=== PATIENT | male | born 1965 | race African-American/Black ===

== ENCOUNTER 2018-04-06 13:11 | Inpatient (IN) | payer OTHER ==
[2018-04-06 16:02] VITALS: BMI 37.3
[2018-04-06] MEDS ORDERED: chlordiazePOXIDE HCL 25 MG CAPSULE PO PRN (18:52)
[2018-04-06] MEDS ORDERED: MENTHOL/PHENOL 1 EACH UD MM PRN (18:52)
[2018-04-06] MEDS ORDERED: guaiFENesin/D-METHORPHAN HB 10 ML UNIT-DOSE CUPS PO PRN (18:52)
[2018-04-06] MEDS ORDERED: MAGNESIUM HYDROX 2400MG/30ML ORAL SUSPENSION 30 ML CUP PO PRN (18:52)
[2018-04-06] MEDS ORDERED: MAGNESIUM CITRATE 300 ML BOTTLE PO PRN (18:52)
[2018-04-06] MEDS ORDERED: hydrOXYzine PAMOATE 50 MG CAPSULE (FP) PO PRN (18:52)
[2018-04-06] MEDS ORDERED: LOPERAMIDE HCL 2 MG CAPSULE PO PRN (18:52)
[2018-04-06] MEDS ORDERED: chlordiazePOXIDE HCL 25 MG CAPSULE PO ONE (18:52)
[2018-04-06] MEDS ORDERED: P-EPHED 60MG/TRIPROLIDI 2.5MG TABLET PO PRN (18:52)
--- NOTE | 2018-04-06 18:52 | HP ---
CIWA Score - CIWA Score Nausea/Vomitin-No Nausea/No Vomiting Muscle Tremors: 4-Moderate,w/Arms Extend Anxiety: 3 Agitation: 3 Paroxysmal Sweats: 3 Orientation: 0-Oriented Tacttile Disturbances: 0-None Auditory Disturbances: 0-None Visual Disturbances: 0-None Headache: 0-None Present CIWA-Ar Total Score: 13 Admission ROS [facility] - HPI Chief Complaint: I am here to stop drinking. Allergies/Adverse Reactions: Allergies Allergy/AdvReac Type Severity Reaction Status Date / Time No Known Allergies Allergy Verified 04/06/18 17:03 History of Present Illness: pt is a 52yr old male with a history of alcohol and crack/cocaine dependence seeking detox for treatment. Exam Limitations: No Limitations - Ebola screening Have you traveled outside of the country in the last 21 days: No Have you had contact with anyone from an Ebola affected area: No Have you been sick,other than usual withdrawal symptoms: No Do you have a fever: No - Review of Systems Constitutional: No Symptoms Reported EENT: reports: Tearing, Nose Congestion Respiratory: reports: No Symptoms reported Cardiac: reports: No Symptoms Reported GI: reports: No Symptoms Reported : reports: No Symptoms Reported Musculoskeletal: reports: No Symptoms Reported Integumentary: reports: No Symptoms Reported Neuro: reports: Tingling, Tremors Endocrine: reports: Flushing Hematology: reports: No Symptoms Reported Psychiatric: reports: Judgement Intact, Mood/Affect Appropiate, Orientated x3, Agitated, Anxious Other Systems: Reviewed and Negative Patient History - Patient Medical History Hx Anemia: No Hx Asthma: No Hx Chronic Obstructive Pulmonary Disease (COPD): No Hx Cancer: No Hx Cardiac Disorders: No Hx Congestive Heart Failure: No Hx Hypertension: No Hx Hypercholesterolemia: No Hx Pacemaker: No HX Cerebrovascular Accident: No Hx Seizures: No Hx Diabetes: No Hx Gastrointestinal Disorders: No Hx Liver Disease: No Hx Genitourinary Disorders: No Hx Sexually Transmitted Disorders: No Hx Renal Disease (ESRD): No Hx Thyroid Disease: No Hx Human Immunodeficiency Virus (HIV): No (denies) Hx Hepatitis C: No Hx Depression: Yes Hx Suicide Attempt: No Hx Bipolar Disorder: No Hx Schizophrenia: Yes - Patient Surgical History Past Surgical History: No Hx Neurologic Surgery: No Hx Cataract Extraction: No Hx Cardiac Surgery: No Hx Lung Surgery: No Hx Breast Surgery: No Hx Breast Biopsy: No Hx Abdominal Surgery: No Hx Appendectomy: No Hx Cholecystectomy: No Hx Genitourinary Surgery: No Hx Section: No Hx Orthopedic Surgery: No Anesthesia Reaction: No - PPD History Previous Implant?: Yes Documented Results: Negative w/o proof Implanted On Prior [facility] Admission?: No PPD to be Administered?: Yes - Reproductive History Patient is a Female of Child Bearing Age (11 -55 yrs old): No - Smoking Cessation Smoking history: Current every day smoker Have you smoked in the past 12 months: Yes Aproximately how many cigarettes per day: 30 Hx Chewing Tobacco Use: No Initiated information on smoking cessation: Yes 'Breaking Loose' booklet given: 04/06/18 - Substance & Tx. History Hx Alcohol Use: Yes Hx Substance Use: Yes Substance Use Type: Alcohol, Cocaine Hx Substance Use Treatment: Yes (last detox 20yrs ago at [place], [place]) - Substances Abused Crack Route: Smoking Frequency: 3-6 times per week Amount used: $400 Age of first use: 21 Date of Last Use: 04/05/18 Alcohol-beer Route: Oral Frequency: Daily Amount used: 2-6 pks beers/ 2 pint cognac Age of first use: 15 Date of Last Use: 04/06/18 Family Disease History - Family Disease History Family Disease History: Diabetes: Mother (), Heart Disease: Father ( ), Mother Admission Physical Exam [facility] - Vital Signs Vital Signs: Vital Signs - 24 hr 04/06/18 15:58 Temperature 98.5 F Pulse Rate 111 H Respiratory 20 Rate Blood Pressure 138/80 - Physical General Appearance: Yes: Appropriately Dressed, Moderate Distress, Obese, Tremorous, Irritable, Sweating, Anxious HEENTM: Yes: Normal Voice, Nasal Congestion, Rhinorrhea Respiratory: Yes: Lungs Clear, Normal Breath Sounds, No Respiratory Distress Neck: Yes: No masses,lesions,Nodules Breast: Yes: Within Normal Limits Cardiology: Yes: Regular Rhythm, Regular Rate, S1, S2 Abdominal: Yes: Normal Bowel Sounds, Non Tender, Flat Genitourinary: Yes: Within Normal Limits Back: Yes: Normal Inspection Musculoskeletal: Yes: full range of Motion, Gait Steady Extremities: Yes: Normal Capillary Refill, Normal Inspection, Tremors Neurological: Yes: Fully Oriented, Alert, Normal Response Integumentary: Yes: Normal Color Lymphatic: Yes: Within Normal Limits - Diagnostic (1) Alcohol dependence with uncomplicated withdrawal Current Visit: Yes Status: Chronic (2) Crack cocaine use Current Visit: Yes Status: Chronic (3) Nicotine dependence Current Visit: Yes Status: Chronic Qualifiers: Nicotine product type: cigarettes Substance use status: uncomplicated Qualified Code(s): F17.210 - Nicotine dependence, cigarettes, uncomplicated Cleared for Admission [facility] - Detox or Rehab [facility] Level of Care: Medically Managed Detox Regimen/Protocol: Librium S Breath Alcohol Content Breath Alcohol Content: 0.002 Urine Drug Screen - Results Drug Screen Negative: No Urine Drug Screen Results: JOSE-Cocaine
[2018-04-06] MEDS ORDERED: ACETAMINOPHEN 325 MG TABLET (FP) PO PRN (19:00)
[2018-04-06] MEDS: THIAMINE HCL 100 MG TABLET (FP) PO SCH (22:16)
[2018-04-06] MEDS: chlordiazePOXIDE HCL 25 MG CAPSULE PO SCH (22:16)
[2018-04-06 23:07] LABS: URINE APPEARANCE CLEAR; URINE BILIRUBIN NEGATIVE (<2.0 mg/dL); URINE COLOR YELLOW; URINE GLUCOSE (UA) NEGATIVE (NEGATIVE); URINE KETONE TRACE (NEGATIVE); URINE LEUK ESTERASE NEGATIVE (NEGATIVE); URINE NITRITE NEGATIVE (NEGATIVE); URINE PROTEIN NEGATIVE (NEGATIVE); URINE UROBILINOGEN NEGATIVE mg/dL (0.2-1.0)
[2018-04-06 23:17] LABS: EPI CELLS RARE /HPF (FEW); URINE MUCUS RARE
[2018-04-07] MEDS: chlordiazePOXIDE HCL 25 MG CAPSULE PO SCH ×4 (05:53→22:12)
[2018-04-07] MEDS: PRENATAL VITAMINS W/ FOLIC ACID TABLET (FP) PO SCH (10:06)
[2018-04-07] MEDS: NICOTINE 21 MG/24 HOURS TOPICAL PATCH TD SCH (10:06)
[2018-04-07] MEDS: NICOTINE POLACRILEX 4 MG GUM BUC PRN (10:09)
[2018-04-07 10:14] LABS: HEMATOCRIT 44.3 % (35.4-49); HEMOGLOBIN 14.5 GM/dL (11.7-16.9); MCH 28.7 pg (25.7-33.7); MCHC 32.8 g/dl (32.0-35.9); MEAN CELL VOLUME 87.5 fl (80-96); MEAN PLT VOLUME 8.9 fl (7.5-11.1); PLATELET COUNT 271 K/MM3 (134-434); RBC 5.07 M/mm3 (4.00-5.60); RDW 14.8 % (11.9-15.9); WHITE BLOOD COUNT 18.9 K/mm3 (4.0-10.0)
[2018-04-07 10:18] LABS: ALBUMIN 3.7 g/dl (3.4-5.0); ANION GAP 8 (8-16); BILIRUBIN,TOTAL 0.6 mg/dL (0.2-1.0); BLOOD UREA NITROGEN 8 mg/dL (7-18); CALCIUM 8.7 mg/dL (8.5-10.1); CHLORIDE 105 mmol/L (98-107); CO2 29 mmol/L (21-32); CREATININE 1.2 mg/dL (0.7-1.3); GLUCOSE,RANDOM 88 mg/dL (74-106); POTASSIUM 4.6 mmol/L (3.5-5.1); SGOT/AST 15 U/L (15-37); SGPT/ALT 25 U/L (12-78); SODIUM 142 mmol/L (136-145)
[2018-04-07 10:19] LABS: ALK PHOS 114 U/L (45-117); TOT PROT 7.8 g/dl (6.4-8.2)
--- NOTE | 2018-04-07 11:28 | EKG ---
Test Reason : Blood Pressure : / mmHG Vent. Rate : 094 BPM Atrial Rate : 094 BPM P-R Int : 138 ms QRS Dur : 082 ms QT Int : 378 ms P-R-T Axes : 041 -02 022 degrees QTc Int : 472 ms NORMAL SINUS RHYTHM NORMAL ECG NO PREVIOUS ECGS AVAILABLE Confirmed by ANCA HAYES MD ([id number]) on 04/07/2018 11:28:23 AM Referred By: Confirmed By:ANCA HAYES MD
--- NOTE | 2018-04-07 16:08 | CONSULT ---
[facility] Psychiatric Consult - Data Date of interview: 04/07/18 Admission source: [facility] Identifying data: First admission to [facility] for this 52 y/o AA male for alcohol and cocaine (crack) dependence.Patient is ,a father of one, domiciled,unemployed and supported on [facility] benefits. Substance Abuse History: Confirmed by patient in this interview.Smoking history : Current every day smoker. Have you smoked in the past 12 months: Yes. Aproximately how many cigarettes per day: 30. Hx Chewing Tobacco Use: No. Initiated information on smoking cessation: Yes. 'Breaking Loose' booklet given : 04/06/18. - Substance & Tx. History. Hx Alcohol Use: Yes. Hx Substance Use : Yes. Substance Use Type: Alcohol, Cocaine. Hx Substance Use Treatment: Yes ( last detox 20yrs ago at [place], [place]). - Substances Abused. Crack. Route: Smoking. Frequency: 3-6 times per week. Amount used: $400. Age of first use: 21. Date of Last Use: 04/05/18. Alcohol-beer. Route: Oral. Frequency: Daily. Amount used: 2-6 pks beers/ 2 pint cognac. Age of first use : 15. Date of Last Use: 04/06/18 Medical History: History of cerebro-vascular accident (CVA + left sided weakness ) in 2015. Psychiatric History: Patient admits to a history of three psychiatric hospitalizations at [facility].Diagnosed with Schizoaffective Disorder.Prescribed haldol 5 mg po bid + depakote 1000 mg po bid (taken two days ago, as per self-report).Patient indicates that he gets his psychiatric follow up at the [facility].Mr Burnham denies history of sucide attempts. Physical/Sexual Abuse/Trauma History: Patient denies. Additional Comment: Urine Drug Screen Results: JOSE-Cocaine Mental Status Exam - Mental Status Exam Alert and Oriented to: Time, Place, Person Cognitive Function: Grossly Intact Patient Appearance: Unkempt, Disheveled (obese) Mood: Withdrawn Affect: Flat Patient Behavior: Sedated (mildly sedated), Fatigued, Cooperative Speech Pattern: Delayed, Slurred (slow) Voice Loudness: Moderately Soft/Quiet Thought Process: Goal Oriented Thought Disorder: Not Present Hallucinations: Denies Suicidal Ideation: Denies Homicidal Ideation: Denies Insight/Judgement: Poor Sleep: Well (slept all day long) Appetite: Good Gait/Station: Other (slow gait) Psychiatric Findings - Problem List ([place] 1, 2,3) (1) Alcohol dependence with uncomplicated withdrawal Current Visit: Yes Status: Acute (2) Nicotine dependence Current Visit: Yes Status: Chronic Qualifiers: Nicotine product type: cigarettes Substance use status: uncomplicated Qualified Code(s): F17.210 - Nicotine dependence, cigarettes, uncomplicated (3) Cocaine dependence Current Visit: Yes Status: Chronic (4) Substance induced mood disorder Current Visit: Yes Status: Acute (5) Schizoaffective disorder Current Visit: Yes Status: Chronic Comment: As per self-report.On medications. - Initial Treatment Plan Initial Treatment Plan: Psychoeducation.Sleep hygiene.Detoxification in progress.Medications : depakote 1000 mg po bid + haldol 5 mg po bid.Side effects /benefits of both drugs are discussed with the patient.Mr Burnham agrees to this careplan.Observation.Medications are verified by pharmacy claims of at [facility].NO scripts necessary at discharge from [facility] ( patient has refill readily available from [facility] providers).
--- NOTE | 2018-04-07 17:10 | PN ---
[facility] CIWA - CIWA Score Nausea/Vomitin-No Nausea/No Vomiting Muscle Tremors: 3 Anxiety: 4-Mod. Anxious/Guarded Agitation: 2 Paroxysmal Sweats: 2 Orientation: 0-Oriented Tacttile Disturbances: 2-Mild Itch/Numbness/Burn Auditory Disturbances: 0-None Visual Disturbances: 2-Mild Sensitivity Headache: 0-None Present CIWA-Ar Total Score: 15 BHS Progress Note (SOAP) Subjective: Tremors, Anxious, Sweating. Objective: PATIENT A & O X 3. PATIENT OBSERVED AMBULATING ON UNIT. NO ACUTE DISTRESS. 04/07/18 17:11 Vital Signs Temperature 97.6 F 04/07/18 14:06 Pulse Rate 76 04/07/18 14:06 Respiratory Rate 18 04/07/18 14:06 Blood Pressure 121/62 04/07/18 14:06 O2 Sat by Pulse Oximetry (%) Laboratory Tests 04/06/18 04/07/18 04/07/18 22:30 07:50 07:50 WBC 18.9 H RBC 5.07 Hgb 14.5 Hct 44.3 MCV 87.5 MCH 28.7 MCHC 32.8 RDW 14.8 Plt Count 271 MPV 8.9 Sodium 142 Potassium 4.6 Chloride 105 Carbon Dioxide 29 Anion Gap 8 BUN 8 Creatinine 1.2 Creat Clearance w eGFR > 60 Random Glucose 88 Calcium 8.7 Total Bilirubin 0.6 AST 15 ALT 25 Alkaline Phosphatase 114 Total Protein 7.8 Albumin 3.7 Urine Color Yellow Urine Appearance Clear Urine pH 6.0 Ur Specific [place] 1.018 Urine Protein Negative Urine Glucose (UA) Negative Urine Ketones Trace H Urine Blood 2+ H Urine Nitrite Negative Urine Bilirubin Negative Urine Urobilinogen Negative Ur Leukocyte Esterase Negative Urine WBC (Auto) <1 Urine RBC (Auto) 9 Ur Epithelial Cells Rare Urine Mucus Rare RPR Titer 04/07/18 07:50 WBC RBC Hgb Hct MCV MCH MCHC RDW Plt Count MPV Sodium Potassium Chloride Carbon Dioxide Anion Gap BUN Creatinine Creat Clearance w eGFR Random Glucose Calcium Total Bilirubin AST ALT Alkaline Phosphatase Total Protein Albumin Urine Color Urine Appearance Urine pH Ur Specific [place] Urine Protein Urine Glucose (UA) Urine Ketones Urine Blood Urine Nitrite Urine Bilirubin Urine Urobilinogen Ur Leukocyte Esterase Urine WBC (Auto) Urine RBC (Auto) Ur Epithelial Cells Urine Mucus RPR Titer Nonreactive LABS NOTED. Assessment: 04/07/18 17:11 WITHDRAWAL SYMPTOMS. LEUKOCYTOSIS. 04/07/18 17:13 Plan: CONTINUE DETOX. REPEAT CBC TOMORROW AM FOR ELEVATED ADMISSION WBC LEVEL.
[2018-04-07] MEDS ORDERED: DIVALPROEX NA *ER* EXTEND REL 500 MG TABLET.SA (FP) PO SCH (22:00)
[2018-04-07] MEDS ORDERED: HALOPERIDOL 5 MG TABLET (FP) PO SCH (22:00)
[2018-04-07] MEDS: THIAMINE HCL 100 MG TABLET (FP) PO SCH (22:11)
[2018-04-07] MEDS: HALOPERIDOL 5 MG TABLET (FP) PO SCH (22:11)
[2018-04-07] MEDS: DIVALPROEX NA *ER* EXTEND REL 500 MG TABLET.SA (FP) PO SCH (22:11)
[2018-04-07] MEDS: IBUPROFEN 400 MG TABLET (FP) PO PRN (22:16)
[2018-04-08] MEDS: chlordiazePOXIDE HCL 25 MG CAPSULE PO SCH ×3 (05:43→18:15)
[2018-04-08] MEDS: HALOPERIDOL 5 MG TABLET (FP) PO SCH (06:21)
[2018-04-08] MEDS: DIVALPROEX NA *ER* EXTEND REL 500 MG TABLET.SA (FP) PO SCH (06:22)
[2018-04-08 10:09] LABS: BASO % 0.3 % (0-2.0); EOS % 1.1 % (0-4.5); HEMATOCRIT 44.7 % (35.4-49); HEMOGLOBIN 14.2 GM/dL (11.7-16.9); LYMPH % 35.7 % (8-40); MCH 28.2 pg (25.7-33.7); MCHC 31.8 g/dl (32.0-35.9); MEAN CELL VOLUME 88.7 fl (80-96); MEAN PLT VOLUME 8.8 fl (7.5-11.1); MONO % 9.9 % (3.8-10.2); PLATELET COUNT 255 K/MM3 (134-434); RBC 5.04 M/mm3 (4.00-5.60); RDW 14.9 % (11.9-15.9); WHITE BLOOD COUNT 14.7 K/mm3 (4.0-10.0)
[2018-04-08] MEDS: PRENATAL VITAMINS W/ FOLIC ACID TABLET (FP) PO SCH (10:12)
[2018-04-08] MEDS: NICOTINE 21 MG/24 HOURS TOPICAL PATCH TD SCH (10:13)
--- NOTE | 2018-04-08 12:16 | PN ---
S Progress Note Note: Psychiatry Attending's Note : Patient shows signs of marked sedation. Depakote and haloperidol are held until further orders. Nursing staff is made aware.
[2018-04-08] MEDS: NICOTINE POLACRILEX 4 MG GUM BUC PRN ×2 (16:19→21:50)
--- NOTE | 2018-04-08 16:47 | PN ---
[facility] CIWA - CIWA Score Nausea/Vomitin-No Nausea/No Vomiting Muscle Tremors: 4-Moderate,w/Arms Extend Anxiety: 2 Agitation: 0-Normal Activity Paroxysmal Sweats: No Perspiration Orientation: 0-Oriented Tacttile Disturbances: 2-Mild Itch/Numbness/Burn Auditory Disturbances: 2-Mild Harshness/Frighten Visual Disturbances: 3-Moderate Sensitivity Headache: 0-None Present CIWA-Ar Total Score: 13 S Progress Note (SOAP) Subjective: Tremors, Fatigue, Interrupted Sleep. Objective: PATIENT A & O X 3. NO ACUTE DISTRESS. 04/08/18 16:45 Vital Signs Temperature 97.3 F L 04/08/18 14:14 Pulse Rate 118 H 04/08/18 14:14 Respiratory Rate 20 04/08/18 14:14 Blood Pressure 129/75 04/08/18 14:14 O2 Sat by Pulse Oximetry (%) Laboratory Tests 04/06/18 04/07/18 04/07/18 22:30 07:50 07:50 WBC 18.9 H RBC 5.07 Hgb 14.5 Hct 44.3 MCV 87.5 MCH 28.7 MCHC 32.8 RDW 14.8 Plt Count 271 MPV 8.9 Neutrophils % Lymphocytes % Monocytes % Eosinophils % Basophils % Nucleated RBC % Sodium 142 Potassium 4.6 Chloride 105 Carbon Dioxide 29 Anion Gap 8 BUN 8 Creatinine 1.2 Creat Clearance w eGFR > 60 Random Glucose 88 Calcium 8.7 Total Bilirubin 0.6 AST 15 ALT 25 Alkaline Phosphatase 114 Total Protein 7.8 Albumin 3.7 Urine Color Yellow Urine Appearance Clear Urine pH 6.0 Ur Specific [place] 1.018 Urine Protein Negative Urine Glucose (UA) Negative Urine Ketones Trace H Urine Blood 2+ H Urine Nitrite Negative Urine Bilirubin Negative Urine Urobilinogen Negative Ur Leukocyte Esterase Negative Urine WBC (Auto) <1 Urine RBC (Auto) 9 Ur Epithelial Cells Rare Urine Mucus Rare Valproic Acid RPR Titer 04/07/18 04/08/18 04/08/18 07:50 07:50 08:20 WBC 14.7 H RBC 5.04 Hgb 14.2 Hct 44.7 MCV 88.7 MCH 28.2 MCHC 31.8 L RDW 14.9 Plt Count 255 MPV 8.8 Neutrophils % 53.0 Lymphocytes % 35.7 Monocytes % 9.9 Eosinophils % 1.1 Basophils % 0.3 Nucleated RBC % 0 Sodium Potassium Chloride Carbon Dioxide Anion Gap BUN Creatinine Creat Clearance w eGFR Random Glucose Calcium Total Bilirubin AST ALT Alkaline Phosphatase Total Protein Albumin Urine Color Urine Appearance Urine pH Ur Specific [place] Urine Protein Urine Glucose (UA) Urine Ketones Urine Blood Urine Nitrite Urine Bilirubin Urine Urobilinogen Ur Leukocyte Esterase Urine WBC (Auto) Urine RBC (Auto) Ur Epithelial Cells Urine Mucus Valproic Acid 35.379 L RPR Titer Nonreactive LABS NOTED. Assessment: 04/08/18 16:45 WITHDRAWAL SYMPTOMS. Plan: CONTINUE DETOX. PATIENT APPEARS LETHARGIC; PSYCHIATRIST DR. HDZ MADE AWARE; AMMONIA LEVEL ORDERED FOR TOMORROW AM. INCREASE DAILY PO FLUID INTAKE.
--- NOTE | 2018-04-08 19:03 | PN ---
[facility] Progress Note Note: positive ppd over 15 mm,arrangement for chest xray at [facility] at 10.00 am on
[2018-04-08] MEDS: THIAMINE HCL 100 MG TABLET (FP) PO SCH (22:31)
[2018-04-08] MEDS: chlordiazePOXIDE 5 MG CAPSULE PO SCH (22:31)
[2018-04-08] MEDS: IBUPROFEN 400 MG TABLET (FP) PO PRN (22:38)
[2018-04-09] MEDS: chlordiazePOXIDE 5 MG CAPSULE PO SCH ×3 (05:51→17:24)
[2018-04-09] MEDS: PRENATAL VITAMINS W/ FOLIC ACID TABLET (FP) PO SCH (10:19)
[2018-04-09] MEDS: NICOTINE 21 MG/24 HOURS TOPICAL PATCH TD SCH (10:19)
--- NOTE | 2018-04-09 17:50 | PN ---
[facility] Progress Note (SOAP) Subjective: Sweating, interrupted sleep Objective: 04/09/18 17:45 Last Vital Signs Temp Pulse Resp BP Pulse Ox 98.1 F 111 H 20 139/96 04/09/18 15:23 04/09/18 15:23 04/09/18 15:23 04/09/18 15:23 Laboratory Tests 04/06/18 04/07/18 04/07/18 22:30 07:50 07:50 WBC 18.9 H RBC 5.07 Hgb 14.5 Hct 44.3 MCV 87.5 MCH 28.7 MCHC 32.8 RDW 14.8 Plt Count 271 MPV 8.9 Neutrophils % Lymphocytes % Monocytes % Eosinophils % Basophils % Nucleated RBC % Sodium 142 Potassium 4.6 Chloride 105 Carbon Dioxide 29 Anion Gap 8 BUN 8 Creatinine 1.2 Creat Clearance w eGFR > 60 Random Glucose 88 Calcium 8.7 Total Bilirubin 0.6 AST 15 ALT 25 Alkaline Phosphatase 114 Ammonia Total Protein 7.8 Albumin 3.7 Urine Color Yellow Urine Appearance Clear Urine pH 6.0 Ur Specific [place] 1.018 Urine Protein Negative Urine Glucose (UA) Negative Urine Ketones Trace H Urine Blood 2+ H Urine Nitrite Negative Urine Bilirubin Negative Urine Urobilinogen Negative Ur Leukocyte Esterase Negative Urine WBC (Auto) <1 Urine RBC (Auto) 9 Ur Epithelial Cells Rare Urine Mucus Rare Valproic Acid RPR Titer 04/07/18 04/08/18 04/08/18 07:50 07:50 08:20 WBC 14.7 H RBC 5.04 Hgb 14.2 Hct 44.7 MCV 88.7 MCH 28.2 MCHC 31.8 L RDW 14.9 Plt Count 255 MPV 8.8 Neutrophils % 53.0 Lymphocytes % 35.7 Monocytes % 9.9 Eosinophils % 1.1 Basophils % 0.3 Nucleated RBC % 0 Sodium Potassium Chloride Carbon Dioxide Anion Gap BUN Creatinine Creat Clearance w eGFR Random Glucose Calcium Total Bilirubin AST ALT Alkaline Phosphatase Ammonia Total Protein Albumin Urine Color Urine Appearance Urine pH Ur Specific [place] Urine Protein Urine Glucose (UA) Urine Ketones Urine Blood Urine Nitrite Urine Bilirubin Urine Urobilinogen Ur Leukocyte Esterase Urine WBC (Auto) Urine RBC (Auto) Ur Epithelial Cells Urine Mucus Valproic Acid 35.379 L RPR Titer Nonreactive 04/09/18 08:00 WBC RBC Hgb Hct MCV MCH MCHC RDW Plt Count MPV Neutrophils % Lymphocytes % Monocytes % Eosinophils % Basophils % Nucleated RBC % Sodium Potassium Chloride Carbon Dioxide Anion Gap BUN Creatinine Creat Clearance w eGFR Random Glucose Calcium Total Bilirubin AST ALT Alkaline Phosphatase Ammonia 63.19 H Total Protein Albumin Urine Color Urine Appearance Urine pH Ur Specific [place] Urine Protein Urine Glucose (UA) Urine Ketones Urine Blood Urine Nitrite Urine Bilirubin Urine Urobilinogen Ur Leukocyte Esterase Urine WBC (Auto) Urine RBC (Auto) Ur Epithelial Cells Urine Mucus Valproic Acid RPR Titer Labs reviewed: increased ammonia level, leukocytosis (trending downward), abnormal UA Assessment: 04/09/18 17:46 Withdrawal symptoms Noted with hyperammonemia, leukocytosis, abnormal UA and PPD positive Plan: Continue detox Hyperammonemia:lactulose 20 gm PO TID, monitor ammonia level prn Leukocytosis: trending downward, repeat CBC Abnormal UA: encouraged PO water hydration, repeat UA PPD positive: asymptomatic for TB, chest xray done today is negative, follow up with your PCP for monitoring
[2018-04-09] MEDS: THIAMINE HCL 100 MG TABLET (FP) PO SCH (22:11)
[2018-04-09] MEDS: chlordiazePOXIDE HCL 10 MG CAPSULE PO SCH (22:11)
[2018-04-09] MEDS: LACTULOSE 20 GM/30 ML UDC (FOR ORAL USE ONLY) PO SCH (22:12)
--- NOTE | 2018-04-10 03:05 | PN ---
[facility] Progress Note Note: As per Ms. Nelda Rios RN, they had a loud thud sound from patient's room and found the patient on the floor. Patient reports that he was going to the bathroom and fell. He reports hitting his head on the floor and appears dazed. Fall was unwitnessed. Post fall protocol # 1 initiated.Patient denies loss of consciousness and no nausea or vomiting noted. Patient is to be transferred to ER for evaluation. Endorsed to Dr. Kari Baum Vital Signs Temperature 98.7 F 04/10/18 02:30 Pulse Rate 97 H 04/10/18 02:30 Respiratory Rate 18 04/10/18 02:30 Blood Pressure 122/83 04/10/18 02:30 O2 Sat by Pulse Oximetry (%) Laboratory Last Values WBC 14.7 K/mm3 (4.0-10.0) H 04/08/18 07:50 RBC 5.04 M/mm3 (4.00-5.60) 04/08/18 07:50 Hgb 14.2 GM/dL (11.7-16.9) 04/08/18 07:50 Hct 44.7 % (35.4-49) 04/08/18 07:50 MCV 88.7 fl (80-96) 04/08/18 07:50 MCH 28.2 pg (25.7-33.7) 04/08/18 07:50 MCHC 31.8 g/dl (32.0-35.9) L 04/08/18 07:50 RDW 14.9 % (11.9-15.9) 04/08/18 07:50 Plt Count 255 K/MM3 (134-434) 04/08/18 07:50 MPV 8.8 fl (7.5-11.1) 04/08/18 07:50 Neutrophils % 53.0 % (42.8-82.8) 04/08/18 07:50 Lymphocytes % 35.7 % (8-40) 04/08/18 07:50 Monocytes % 9.9 % (3.8-10.2) 04/08/18 07:50 Eosinophils % 1.1 % (0-4.5) 04/08/18 07:50 Basophils % 0.3 % (0-2.0) 04/08/18 07:50 Nucleated RBC % 0 % (0-0) 04/08/18 07:50 Sodium 142 mmol/L (136-145) 04/07/18 07:50 Potassium 4.6 mmol/L (3.5-5.1) 04/07/18 07:50 Chloride 105 mmol/L (98-107) 04/07/18 07:50 Carbon Dioxide 29 mmol/L (21-32) 04/07/18 07:50 Anion Gap 8 (8-16) 04/07/18 07:50 BUN 8 mg/dL (7-18) 04/07/18 07:50 Creatinine 1.2 mg/dL (0.7-1.3) 04/07/18 07:50 Creat Clearance w eGFR > 60 (>60) 04/07/18 07:50 Random Glucose 88 mg/dL (74-106) 04/07/18 07:50 Calcium 8.7 mg/dL (8.5-10.1) 04/07/18 07:50 Total Bilirubin 0.6 mg/dL (0.2-1.0) 04/07/18 07:50 AST 15 U/L (15-37) 04/07/18 07:50 ALT 25 U/L (12-78) 04/07/18 07:50 Alkaline Phosphatase 114 U/L (45-117) 04/07/18 07:50 Ammonia 63.19 umol/L (11-32) H 04/09/18 08:00 Total Protein 7.8 g/dl (6.4-8.2) 04/07/18 07:50 Albumin 3.7 g/dl (3.4-5.0) 04/07/18 07:50 Urine Color Yellow 04/06/18 22:30 Urine Appearance Clear 04/06/18 22:30 Urine pH 6.0 (5.0-8.0) 04/06/18 22:30 Ur Specific [place] 1.018 (1.001-1.035) 04/06/18 22:30 Urine Protein Negative (NEGATIVE) 04/06/18 22:30 Urine Glucose (UA) Negative (NEGATIVE) 04/06/18 22:30 Urine Ketones Trace (NEGATIVE) H 04/06/18 22:30 Urine Blood 2+ (NEGATIVE) H 04/06/18 22:30 Urine Nitrite Negative (NEGATIVE) 04/06/18 22:30 Urine Bilirubin Negative (<2.0 mg/dL) 04/06/18 22:30 Urine Urobilinogen Negative mg/dL (0.2-1.0) 04/06/18 22:30 Ur Leukocyte Esterase Negative (NEGATIVE) 04/06/18 22:30 Urine WBC (Auto) <1 /hpf (3-5) 04/06/18 22:30 Urine RBC (Auto) 9 /hpf (0-3) 04/06/18 22:30 Ur Epithelial Cells Rare /HPF (FEW) 04/06/18 22:30 Urine Mucus Rare 04/06/18 22:30 Valproic Acid 35.379 ug/ml (50-100) L 04/08/18 08:20 RPR Titer Nonreactive (NONREACTIVE) 04/07/18 07:50 Action: Transfer patient to ER for further evaluation. Endorsed to Dr. Kari Baum
[2018-04-10] MEDS: chlordiazePOXIDE HCL 10 MG CAPSULE PO SCH ×3 (06:00→18:30)
[2018-04-10] MEDS: LACTULOSE 20 GM/30 ML UDC (FOR ORAL USE ONLY) PO SCH ×3 (06:47→22:17)
--- NOTE | 2018-04-10 09:25 | PN ---
S Progress Note (SOAP) Subjective: "I feel okay" Objective: 04/10/18 09:22 A & Ox 3 Appears sluggish Vital Signs Temperature 97.6 F 04/10/18 06:30 Pulse Rate 66 04/10/18 06:30 Respiratory Rate 18 04/10/18 06:30 Blood Pressure 112/73 04/10/18 06:30 O2 Sat by Pulse Oximetry (%) Assessment: 04/10/18 09:22 withdrawal sx sluggish s/p hyperammonemia Post fall (unwitnessed) Plan: Continue detox Continue lactulose for hyperammonemia Continue monitoring s/p fall Evaluate for d/c in a.m
[2018-04-10 10:33] LABS: BASO % 0.3 % (0-2.0); EOS % 1.4 % (0-4.5); HEMOGLOBIN 13.8 GM/dL (11.7-16.9); LYMPH % 35.2 % (8-40); MCH 28.9 pg (25.7-33.7); MCHC 32.9 g/dl (32.0-35.9); MEAN CELL VOLUME 87.9 fl (80-96); MONO % 9.7 % (3.8-10.2); NEUT % 53.4 % (42.8-82.8); PLATELET COUNT 267 K/MM3 (134-434); RBC 4.78 M/mm3 (4.00-5.60); RDW 14.8 % (11.9-15.9); WHITE BLOOD COUNT 11.6 K/mm3 (4.0-10.0)
[2018-04-10] MEDS: NICOTINE 21 MG/24 HOURS TOPICAL PATCH TD SCH (10:33)
[2018-04-10] MEDS: PRENATAL VITAMINS W/ FOLIC ACID TABLET (FP) PO SCH (10:33)
--- NOTE | 2018-04-10 15:56 | PN ---
Psychiatric Progress Note Vital Signs: Vital Signs Period Temp Pulse Resp BP Sys/North Pulse Ox Last 24 Hr 96.3 F-98.7 F 66-116 18-20 112-130/70-86 Date of Session: 04/10/18 Chief Complaint:: " I feel much better ". HPI: Day 4 of detoxification for alcohol + cocaine dependence.Medication regimen was re-adjusted in view of daytime sedation and sleepiness.Patient is re -assessed by this rewriter in response to the report of an accidental fall that occurred earlier this morning.Patient confirms that he " rolled over and fell from bed ".Sent to [facility] for medical evaluation.Cleared to return to [facility] for continuation of detox care. ROS: Patient is awake,alert,fully oriented and able to perform ADL tasks independently (grooming,eating,showering).Ambulatory.Slow but steady.No somatic complaints offered at the time of this examination. Current Medications: Active Medications Generic Name Dose Route Start Last Admin Trade Name Freq PRN Reason Stop Dose Admin Al Hydroxide/Mg Hydroxide 30 ml 04/06/18 18:52 Mylanta Oral Suspension - PO Q6H PRN DYSPEPSIA Chlordiazepoxide HCl 10 mg 04/09/18 23:00 04/10/18 10:35 Librium - PO 04/10/18 17:01 Not Given [id number] EMMA Eucalyptus/Menthol/Phenol/Sorbitol 1 each 04/06/18 18:52 Cepastat Lozenge - MM Q4H PRN SORE THROAT Guaifenesin 10 ml 04/06/18 18:52 Robitussin Dm - PO Q6H PRN COUGH Hydroxyzine Pamoate 50 mg 04/06/18 18:52 Vistaril - PO Q4H PRN AGITATION Ibuprofen 400 mg 04/06/18 18:52 04/08/18 22:38 Motrin - PO 400 mg Q6H PRN Administration PAIN LEVEL 4-6 Lactulose 20 gm 04/09/18 22:00 04/10/18 14:54 Cephulac (Oral Use) PO 20 gm TID EMMA Administration Loperamide HCl 4 mg 04/06/18 18:52 Imodium - PO Q6H PRN DIARRHEA Magnesium Citrate 300 ml 04/06/18 18:52 Citroma - PO Q48H PRN CONSTIPATION Magnesium Hydroxide 30 ml 04/06/18 18:52 Milk Of Magnesia - PO DAILY PRN CONSTIPATION Melatonin 5 mg 04/06/18 22:00 Melatonin PO HS PRN INSOMNIA Nicotine 21 mg 04/07/18 10:00 04/10/18 10:33 Nicoderm Patch - TD 21 mg DAILY EMMA Administration Nicotine Polacrilex 4 mg 04/06/18 18:52 04/08/18 21:50 Nicorette Gum - BUC 4 mg Q2H PRN Administration NICOTINE REPLACEMENT RX Multivit/Folic Acid/Iron 1 tab 04/07/18 10:00 04/10/18 10:33 Vitamins (Sjr) - PO 1 tab DAILY EMMA Administration Pseudoephedrine/Triprolidine 1 combo 04/06/18 18:52 Actifed - PO TID PRN NASAL CONGESTION Thiamine HCl 100 mg 04/06/18 22:00 04/09/18 22:11 Vitamin B1 - PO 100 mg HS EMMA Administration Medication(s) Change(s): Depakote and haloperidol are still on hold.Patient confirms that he was prescribed valproate for the purpose of mood stabilization.NO history of seizure disorder. Current Side Effect: Yes (medication-induced parkinsonism is suspected) Lab tests ordered: Yes (ammonia level re-ordered) Lab tests reviewed: Yes (ammonia level = 63 ; VA level = 35 / subtherapeutic) Provider note:: Chart reviewed.Labs revisited : elevated WBC / unremarkable CMP with the exception of elevated ammonia.Case discussed with TERRANCE Parsons.Patient is examined at bedside.Found sitting on his bed awaiting his turn to get morning medications.Fully aware of his surroundings.Conversant and decent historian over the recent events.Mr Burnham reports that he fell from his bed in the early hours of the morning and he denies experiencing pain or any distress.No self-report of dizziness at time of interview.Patient relates appropriately with this rewriter and shows a clear understanding of his disposition arrangements (discharge home tomorrow + plan to resume OPD care at the [facility]).He is aware of the fact that his discharge hinges upon a clear sensorium + acceptable ammonia level + stable medical status.Patient is making fair progress.No evidence of psychosis.Mood remains neutral.Mr Burnham has consistently denied suicidal / homicidal ideation ,intent or plan.Mental status is stable.Will follow. Total face to face time:: 25 Mental Status Exam - Mental Status Exam Alert and Oriented to: Time, Place, Person Cognitive Function: Grossly Intact Patient Appearance: Well Groomed Mood: Withdrawn Affect: Blunted Patient Behavior: Fatigued, Cooperative Speech Pattern: Clear (coherent and goal-directed), Appropriate Voice Loudness: Moderately Soft/Quiet Thought Process: Goal Oriented Hallucinations: Denies Suicidal Ideation: Denies Homicidal Ideation: Denies Insight/Judgement: Fair Sleep: Well Appetite: Good Gait/Station: Other (slow but steady) Psychiatric Treatment Plan - Problem List (1) Alcohol dependence with uncomplicated withdrawal Current Visit: Yes Comment: . (2) Nicotine dependence Current Visit: Yes Qualifiers: Nicotine product type: cigarettes Substance use status: uncomplicated Qualified Code(s): F17.210 - Nicotine dependence, cigarettes, uncomplicated Comment: . (3) Cocaine dependence Current Visit: Yes Comment: . (4) Substance induced mood disorder Current Visit: Yes Comment: . (5) Schizoaffective disorder Current Visit: Yes Qualifiers: Schizoaffective disorder type: unspecified Qualified Code(s): F25.9 - Schizoaffective disorder, unspecified Comment: .As per self-report.On medications.
[2018-04-10] MEDS: THIAMINE HCL 100 MG TABLET (FP) PO SCH (22:17)
[2018-04-10] MEDS: IBUPROFEN 400 MG TABLET (FP) PO PRN (22:51)
[2018-04-11] MEDS: LACTULOSE 20 GM/30 ML UDC (FOR ORAL USE ONLY) PO SCH ×3 (08:14→22:16)
[2018-04-11] MEDS: NICOTINE 21 MG/24 HOURS TOPICAL PATCH TD SCH (10:16)
[2018-04-11] MEDS: PRENATAL VITAMINS W/ FOLIC ACID TABLET (FP) PO SCH (10:16)
--- NOTE | 2018-04-11 12:06 | PN ---
Psychiatric Progress Note Vital Signs: Vital Signs Period Temp Pulse Resp BP Sys/North Pulse Ox Last 24 Hr 95.8 F-98.6 F 65-101 18-20 102-124/68-84 Date of Session: 04/11/18 Chief Complaint:: " I feel much better.I am ready for rehab." HPI: Day 5 of detoxification treatment.Follow-up consultation. ROS: Patient is visible on the unit.Ambulatory.Alert and fully oriented.Cognitively much improved.No somatic complaints. Current Medications: Active Medications Generic Name Dose Route Start Last Admin Trade Name Freq PRN Reason Stop Dose Admin Al Hydroxide/Mg Hydroxide 30 ml 04/06/18 18:52 Mylanta Oral Suspension - PO Q6H PRN DYSPEPSIA Eucalyptus/Menthol/Phenol/Sorbitol 1 each 04/06/18 18:52 Cepastat Lozenge - MM Q4H PRN SORE THROAT Guaifenesin 10 ml 04/06/18 18:52 Robitussin Dm - PO Q6H PRN COUGH Hydroxyzine Pamoate 50 mg 04/06/18 18:52 Vistaril - PO Q4H PRN AGITATION Ibuprofen 400 mg 04/06/18 18:52 04/10/18 22:51 Motrin - PO 400 mg Q6H PRN Administration PAIN LEVEL 4-6 Lactulose 20 gm 04/09/18 22:00 04/11/18 08:14 Cephulac (Oral Use) PO 20 gm TID EMMA Administration Loperamide HCl 4 mg 04/06/18 18:52 Imodium - PO Q6H PRN DIARRHEA Magnesium Citrate 300 ml 04/06/18 18:52 Citroma - PO Q48H PRN CONSTIPATION Magnesium Hydroxide 30 ml 04/06/18 18:52 Milk Of Magnesia - PO DAILY PRN CONSTIPATION Melatonin 5 mg 04/06/18 22:00 Melatonin PO HS PRN INSOMNIA Nicotine 21 mg 04/07/18 10:00 04/11/18 10:16 Nicoderm Patch - TD 21 mg DAILY EMMA Administration Nicotine Polacrilex 4 mg 04/06/18 18:52 04/08/18 21:50 Nicorette Gum - BUC 4 mg Q2H PRN Administration NICOTINE REPLACEMENT RX Multivit/Folic Acid/Iron 1 tab 04/07/18 10:00 04/11/18 10:16 Vitamins (Sjr) - PO 1 tab DAILY EMMA Administration Pseudoephedrine/Triprolidine 1 combo 04/06/18 18:52 Actifed - PO TID PRN NASAL CONGESTION Thiamine HCl 100 mg 04/06/18 22:00 04/10/18 22:17 Vitamin B1 - PO 100 mg HS EMMA Administration Medication(s) Change(s): Medications discussed.Haldol and depakote have been held due to hyperammonemia (now trending down).Will be resumed as soon as level returns to normal values. Current Side Effect: Yes (EPS signs) Lab tests ordered: Yes (ammonia level) Lab tests reviewed: Yes (ammonia level - 04/11/18 - is now 45 ; improving) Provider note:: Case discussed this AM with the medical TECHNICAL SERVICES ANALYST Mireille.Labs are revisited.Patient is re-interviewed.Mr Burnham is visible on the unit,well groomed,more conversant and goal-directed.Fully aware of his surroundings, adherent to his medications and actively involved in disposition planning.Patient is willing to continue treatment on the rehabilitation unit at [facility].Communicates with a clearer speech and exhibits more sustained attention.Brighter affect and more active social interaction.Patient is able to provide additional personal information : lives with in [place] ; diagnosed for past three years with Schizoaffective Disorder,bipolar type ; sees his psychiatrist at the [facility] mental health clinic twice a month.Able to remember address and 's name Jenelle Burnham + telephone number ([phone]).He reports that he spoke to on 04/10/18 ( attempt made to contact during this interview, with patient's authorization ).Not available.In the meantime, the patient continues to show improvement as evidenced by clearer sensorium.Has consistently denied perceptual disturbances or delusions.Not suicidal or homicidal.Pleasant on approach and performant in the execution of his ADLs.Regular hospital course.Normal vitals.Arrangements in process for transfer to the rehabilitation unit ([facility] or [address] [facility]).However, discharge remains an alternative in the event of no-vacancy on the rehabilitation units.In such a case, it will be prudent to secure appropriate transportation for the patient.Mr Burnham has a recent history of CVA + left sided weakness with residual cognitive deficits.His medical condition makes independent travel precarious and hazardous.Medical TECHNICAL SERVICES ANALYST Mireille is made aware of the situation.Patient is currently at his baseline.If discharged, the patient will be granted transportation to case address. Total face to face time:: 35 Mental Status Exam - Mental Status Exam Alert and Oriented to: Time, Place, Person Cognitive Function: Good Patient Appearance: Well Groomed Mood: Hopeful Affect: Mood Congruent Patient Behavior: Appropriate, Cooperative Speech Pattern: Clear Voice Loudness: Normal Thought Process: Goal Oriented Thought Disorder: Not Present Hallucinations: Denies Suicidal Ideation: Denies Homicidal Ideation: Denies Insight/Judgement: Fair Sleep: Well Appetite: Good Gait/Station: Other (slow gait) Psychiatric Treatment Plan - Problem List (1) Alcohol dependence with uncomplicated withdrawal Current Visit: Yes Comment: . (2) Nicotine dependence Current Visit: Yes Qualifiers: Nicotine product type: cigarettes Substance use status: uncomplicated Qualified Code(s): F17.210 - Nicotine dependence, cigarettes, uncomplicated Comment: . (3) Cocaine dependence Current Visit: Yes Comment: . (4) Substance induced mood disorder Current Visit: Yes Comment: . (5) Schizoaffective disorder Current Visit: Yes Qualifiers: Schizoaffective disorder type: unspecified Qualified Code(s): F25.9 - Schizoaffective disorder, unspecified Comment: .As per self-report.On medications.
--- NOTE | 2018-04-11 17:37 | PN ---
[facility] Progress Note (SOAP) Subjective: Anxious, Fatigue. Objective: PATIENT A & O X 3, OBSERVED AMBULATING ON UNIT. NO ACUTE DISTRESS. 04/11/18 17:32 Vital Signs Temperature 97.3 F L 04/11/18 13:55 Pulse Rate 91 H 04/11/18 13:55 Respiratory Rate 18 04/11/18 13:55 Blood Pressure 128/84 04/11/18 13:55 O2 Sat by Pulse Oximetry (%) Laboratory Tests 04/06/18 04/07/18 04/07/18 22:30 07:50 07:50 WBC 18.9 H RBC 5.07 Hgb 14.5 Hct 44.3 MCV 87.5 MCH 28.7 MCHC 32.8 RDW 14.8 Plt Count 271 MPV 8.9 Neutrophils % Lymphocytes % Monocytes % Eosinophils % Basophils % Nucleated RBC % Sodium 142 Potassium 4.6 Chloride 105 Carbon Dioxide 29 Anion Gap 8 BUN 8 Creatinine 1.2 Creat Clearance w eGFR > 60 Random Glucose 88 Calcium 8.7 Total Bilirubin 0.6 AST 15 ALT 25 Alkaline Phosphatase 114 Ammonia Total Protein 7.8 Albumin 3.7 Urine Color Yellow Urine Appearance Clear Urine pH 6.0 Ur Specific [place] 1.018 Urine Protein Negative Urine Glucose (UA) Negative Urine Ketones Trace H Urine Blood 2+ H Urine Nitrite Negative Urine Bilirubin Negative Urine Urobilinogen Negative Ur Leukocyte Esterase Negative Urine WBC (Auto) <1 Urine RBC (Auto) 9 Ur Epithelial Cells Rare Urine Mucus Rare Valproic Acid RPR Titer 04/07/18 04/08/18 04/08/18 07:50 07:50 08:20 WBC 14.7 H RBC 5.04 Hgb 14.2 Hct 44.7 MCV 88.7 MCH 28.2 MCHC 31.8 L RDW 14.9 Plt Count 255 MPV 8.8 Neutrophils % 53.0 Lymphocytes % 35.7 Monocytes % 9.9 Eosinophils % 1.1 Basophils % 0.3 Nucleated RBC % 0 Sodium Potassium Chloride Carbon Dioxide Anion Gap BUN Creatinine Creat Clearance w eGFR Random Glucose Calcium Total Bilirubin AST ALT Alkaline Phosphatase Ammonia Total Protein Albumin Urine Color Urine Appearance Urine pH Ur Specific [place] Urine Protein Urine Glucose (UA) Urine Ketones Urine Blood Urine Nitrite Urine Bilirubin Urine Urobilinogen Ur Leukocyte Esterase Urine WBC (Auto) Urine RBC (Auto) Ur Epithelial Cells Urine Mucus Valproic Acid 35.379 L RPR Titer Nonreactive 04/09/18 04/10/18 04/11/18 08:00 07:55 07:45 WBC 11.6 H RBC 4.78 Hgb 13.8 Hct 42.0 MCV 87.9 MCH 28.9 MCHC 32.9 RDW 14.8 Plt Count 267 MPV 9.0 Neutrophils % 53.4 Lymphocytes % 35.2 Monocytes % 9.7 Eosinophils % 1.4 Basophils % 0.3 Nucleated RBC % 0 Sodium Potassium Chloride Carbon Dioxide Anion Gap BUN Creatinine Creat Clearance w eGFR Random Glucose Calcium Total Bilirubin AST ALT Alkaline Phosphatase Ammonia 63.19 H 45.88 H Total Protein Albumin Urine Color Urine Appearance Urine pH Ur Specific [place] Urine Protein Urine Glucose (UA) Urine Ketones Urine Blood Urine Nitrite Urine Bilirubin Urine Urobilinogen Ur Leukocyte Esterase Urine WBC (Auto) Urine RBC (Auto) Ur Epithelial Cells Urine Mucus Valproic Acid RPR Titer LABS NOTED. RESULTS OF REPEAT AMMONIA LEVEL NOTED. Assessment: 04/11/18 17:33 WITHDRAWAL SYMPTOMS. Plan: CONTINUE DETOX. CONTINUE LACTULOSE. INCREASE DAILY PO FLUID INTAKE. PATIENT ORIGINALLY SCHEDULED FOR D/C EARLIER TODAY. HOWEVER, DUE TO LACK OF CURRENT FEASIBLE AFTERCARE PLAN AND DUE TO ACT THAT PATIENT WILL LIKLELY HAVE DIFFICULTY UTILIZING PUBLIC TRANSPORTATION BY HIMSELF ( ALSO ITERATED BY PSYCHIATRIST DR. Jonathan HDZ M.D.), PATIENT WILL REMAIN ON DETOX UNIT UNTIL TOMORROW FOR SAFETY CONCERNS. AFTERCARE PLANNING WILL ONCE AGAIN BE ASSESSED TOMORROW AM.
[2018-04-11] MEDS: THIAMINE HCL 100 MG TABLET (FP) PO SCH (22:16)
[2018-04-12] MEDS: LACTULOSE 20 GM/30 ML UDC (FOR ORAL USE ONLY) PO SCH ×3 (05:48→21:38)
[2018-04-12] MEDS: NICOTINE 21 MG/24 HOURS TOPICAL PATCH TD SCH (10:10)
[2018-04-12] MEDS: PRENATAL VITAMINS W/ FOLIC ACID TABLET (FP) PO SCH (10:10)
--- NOTE | 2018-04-12 12:31 | PN ---
[facility] Progress Note (SOAP) Subjective: Patient denies current Detox symptoms and reports that he feels well overall. Objective: 04/12/18 12:29 Vital Signs Temperature 97.6 F 04/12/18 09:41 Pulse Rate 70 04/12/18 09:41 Respiratory Rate 18 04/12/18 09:41 Blood Pressure 132/77 04/12/18 09:41 O2 Sat by Pulse Oximetry (%) Laboratory Tests 04/06/18 04/07/18 04/07/18 22:30 07:50 07:50 WBC 18.9 H RBC 5.07 Hgb 14.5 Hct 44.3 MCV 87.5 MCH 28.7 MCHC 32.8 RDW 14.8 Plt Count 271 MPV 8.9 Neutrophils % Lymphocytes % Monocytes % Eosinophils % Basophils % Nucleated RBC % Sodium 142 Potassium 4.6 Chloride 105 Carbon Dioxide 29 Anion Gap 8 BUN 8 Creatinine 1.2 Creat Clearance w eGFR > 60 Random Glucose 88 Calcium 8.7 Total Bilirubin 0.6 AST 15 ALT 25 Alkaline Phosphatase 114 Ammonia Total Protein 7.8 Albumin 3.7 Urine Color Yellow Urine Appearance Clear Urine pH 6.0 Ur Specific [place] 1.018 Urine Protein Negative Urine Glucose (UA) Negative Urine Ketones Trace H Urine Blood 2+ H Urine Nitrite Negative Urine Bilirubin Negative Urine Urobilinogen Negative Ur Leukocyte Esterase Negative Urine WBC (Auto) <1 Urine RBC (Auto) 9 Ur Epithelial Cells Rare Urine Mucus Rare Valproic Acid RPR Titer 04/07/18 04/08/18 04/08/18 07:50 07:50 08:20 WBC 14.7 H RBC 5.04 Hgb 14.2 Hct 44.7 MCV 88.7 MCH 28.2 MCHC 31.8 L RDW 14.9 Plt Count 255 MPV 8.8 Neutrophils % 53.0 Lymphocytes % 35.7 Monocytes % 9.9 Eosinophils % 1.1 Basophils % 0.3 Nucleated RBC % 0 Sodium Potassium Chloride Carbon Dioxide Anion Gap BUN Creatinine Creat Clearance w eGFR Random Glucose Calcium Total Bilirubin AST ALT Alkaline Phosphatase Ammonia Total Protein Albumin Urine Color Urine Appearance Urine pH Ur Specific [place] Urine Protein Urine Glucose (UA) Urine Ketones Urine Blood Urine Nitrite Urine Bilirubin Urine Urobilinogen Ur Leukocyte Esterase Urine WBC (Auto) Urine RBC (Auto) Ur Epithelial Cells Urine Mucus Valproic Acid 35.379 L RPR Titer Nonreactive 04/09/18 04/10/1818 08:00 07:55 07:45 WBC 11.6 H RBC 4.78 Hgb 13.8 Hct 42.0 MCV 87.9 MCH 28.9 MCHC 32.9 RDW 14.8 Plt Count 267 MPV 9.0 Neutrophils % 53.4 Lymphocytes % 35.2 Monocytes % 9.7 Eosinophils % 1.4 Basophils % 0.3 Nucleated RBC % 0 Sodium Potassium Chloride Carbon Dioxide Anion Gap BUN Creatinine Creat Clearance w eGFR Random Glucose Calcium Total Bilirubin AST ALT Alkaline Phosphatase Ammonia 63.19 H 45.88 H Total Protein Albumin Urine Color Urine Appearance Urine pH Ur Specific [place] Urine Protein Urine Glucose (UA) Urine Ketones Urine Blood Urine Nitrite Urine Bilirubin Urine Urobilinogen Ur Leukocyte Esterase Urine WBC (Auto) Urine RBC (Auto) Ur Epithelial Cells Urine Mucus Valproic Acid RPR Titer LABS NOTED. Assessment: 04/12/18 12:29 COMPLETION OF DETOX REGIMEN. Plan: PATIENT SCHEDULED FOR DISCHARGE FROM DETOX UNIT TODAY. PATIENT GOING TO [facility] FOR AFTERCARE.
--- NOTE | 2018-04-12 12:35 | DS ---
[facility] Detox Discharge Summary Admission Date: 04/06/18 Discharge Date: 04/12/18 - History Present History: Alcohol Dependence, Cocaine Dependence Additional Comments: PATIENT GOING TO [facility] ([place] FOR AFTERCARE. PATIENT WAS DISCHARGED FROM DETOX UNIT IN STABLE MEDICAL CONDITION. Pertinent Past History: Depression, Schizoaffective Disorder, Hyperammonemia, Leukocytosis, Nicotine Dependence. - Physical Exam Results Vital Signs: Vital Signs Temperature 97.6 F 04/12/18 09:41 Pulse Rate 70 04/12/18 09:41 Respiratory Rate 18 04/12/18 09:41 Blood Pressure 132/77 04/12/18 09:41 O2 Sat by Pulse Oximetry (%) Pertinent Admission Physical Exam Findings: WITHDRAWAL SYMPTOMS. Laboratory Tests 04/06/18 04/07/18 04/07/18 22:30 07:50 07:50 WBC 18.9 H RBC 5.07 Hgb 14.5 Hct 44.3 MCV 87.5 MCH 28.7 MCHC 32.8 RDW 14.8 Plt Count 271 MPV 8.9 Neutrophils % Lymphocytes % Monocytes % Eosinophils % Basophils % Nucleated RBC % Sodium 142 Potassium 4.6 Chloride 105 Carbon Dioxide 29 Anion Gap 8 BUN 8 Creatinine 1.2 Creat Clearance w eGFR > 60 Random Glucose 88 Calcium 8.7 Total Bilirubin 0.6 AST 15 ALT 25 Alkaline Phosphatase 114 Ammonia Total Protein 7.8 Albumin 3.7 Urine Color Yellow Urine Appearance Clear Urine pH 6.0 Ur Specific [place] 1.018 Urine Protein Negative Urine Glucose (UA) Negative Urine Ketones Trace H Urine Blood 2+ H Urine Nitrite Negative Urine Bilirubin Negative Urine Urobilinogen Negative Ur Leukocyte Esterase Negative Urine WBC (Auto) <1 Urine RBC (Auto) 9 Ur Epithelial Cells Rare Urine Mucus Rare Valproic Acid RPR Titer 04/07/18 04/08/18 04/08/18 07:50 07:50 08:20 WBC 14.7 H RBC 5.04 Hgb 14.2 Hct 44.7 MCV 88.7 MCH 28.2 MCHC 31.8 L RDW 14.9 Plt Count 255 MPV 8.8 Neutrophils % 53.0 Lymphocytes % 35.7 Monocytes % 9.9 Eosinophils % 1.1 Basophils % 0.3 Nucleated RBC % 0 Sodium Potassium Chloride Carbon Dioxide Anion Gap BUN Creatinine Creat Clearance w eGFR Random Glucose Calcium Total Bilirubin AST ALT Alkaline Phosphatase Ammonia Total Protein Albumin Urine Color Urine Appearance Urine pH Ur Specific [place] Urine Protein Urine Glucose (UA) Urine Ketones Urine Blood Urine Nitrite Urine Bilirubin Urine Urobilinogen Ur Leukocyte Esterase Urine WBC (Auto) Urine RBC (Auto) Ur Epithelial Cells Urine Mucus Valproic Acid 35.379 L RPR Titer Nonreactive 04/09/18 04/10/18 04/11/18 08:00 07:55 07:45 WBC 11.6 H RBC 4.78 Hgb 13.8 Hct 42.0 MCV 87.9 MCH 28.9 MCHC 32.9 RDW 14.8 Plt Count 267 MPV 9.0 Neutrophils % 53.4 Lymphocytes % 35.2 Monocytes % 9.7 Eosinophils % 1.4 Basophils % 0.3 Nucleated RBC % 0 Sodium Potassium Chloride Carbon Dioxide Anion Gap BUN Creatinine Creat Clearance w eGFR Random Glucose Calcium Total Bilirubin AST ALT Alkaline Phosphatase Ammonia 63.19 H 45.88 H Total Protein Albumin Urine Color Urine Appearance Urine pH Ur Specific [place] Urine Protein Urine Glucose (UA) Urine Ketones Urine Blood Urine Nitrite Urine Bilirubin Urine Urobilinogen Ur Leukocyte Esterase Urine WBC (Auto) Urine RBC (Auto) Ur Epithelial Cells Urine Mucus Valproic Acid RPR Titer LABS NOTED. - Treatment Hospital Course: Detox Protocol Followed, Detoxed Safely, Responded well, Discharged Condition Good, Rehab Referral Accepted Patient has Accepted a Rehab Referral to: [facility] ([place] . - Medication Discharge Medications: Ambulatory Orders Divalproex Sodium [Depakote ER] 1,000 mg PO AM 04/06/18 Divalproex Sodium [Depakote ER] 1,000 mg PO HS 04/06/18 Donepezil HCl 10 mg PO DAILY 04/06/18 Haloperidol [Haldol -] 5 mg PO AM 04/06/18 Haloperidol [Haldol -] 5 mg PO HS 04/06/18 - Diagnosis (1) Alcohol dependence with uncomplicated withdrawal Current Visit: Yes Status: Acute (2) Crack cocaine use Current Visit: Yes Status: Chronic (3) Nicotine dependence Current Visit: Yes Status: Chronic Qualifiers: Nicotine product type: cigarettes Substance use status: uncomplicated Qualified Code(s): F17.210 - Nicotine dependence, cigarettes, uncomplicated (4) Hyperammonemia Current Visit: Yes Status: Acute (5) Leukocytosis Current Visit: Yes Status: Acute Qualifiers: Leukocytosis type: unspecified Qualified Code(s): D72.829 - Elevated white blood cell count, unspecified (6) Substance induced mood disorder Current Visit: Yes Status: Acute (7) Schizoaffective disorder Current Visit: Yes Status: Chronic Qualifiers: Schizoaffective disorder type: unspecified Qualified Code(s): F25.9 - Schizoaffective disorder, unspecified - AMA Did Patient Leave Against Medical Advice: No
--- NOTE | 2018-04-12 12:47 | HP ---
[facility] Rehab Assess/Revision - Admission History Admitted to Rehab from: [facility] Date of Admission to Rehab: 04/12/2018 - Vital signs Vital Signs: Vital Signs Period Temp Pulse Resp BP Sys/North Pulse Ox Last 24 Hr 96.6 F-97.6 F 70-91 18-20 98-132/64-84 - Findings Detox History & Physical reviewed: Yes Concur with findings: Yes Comments/Additional Findings: PATIENT'S MEDICAL / MEDICATION HISTORY REVIEWED PRIOR TO DISCHARGE FROM DETOX UNIT. PATIENT TO BE CONTINUED ON LACTULOSE FOR 2 MORE DAYS. AMMONIA LEVEL CBC TO BE RE-CHECKED ON 04/14/2018. DETERMINATION ABOUT CONTINUATION OF LACTULOSE TO BE MADE UPON AMMONIA RESULT AT THAT TIME. PATIENT WAS DISCHARGED FROM DETOX UNIT TO BE TAKEN TO REHAB UNIT IN STABLE MEDICAL CONDITION.
[2018-04-12] MEDS ORDERED: HALOPERIDOL 5 MG TABLET (FP) PO PRN (14:55)
[2018-04-12] MEDS ORDERED: BENZTROPINE MESYLATE 1 MG TABLET (FP) PO PRN (14:57)
[2018-04-12] MEDS: NICOTINE POLACRILEX 4 MG GUM BUC PRN (15:34)
[2018-04-12] MEDS: THIAMINE HCL 100 MG TABLET (FP) PO SCH (21:39)
[2018-04-12] MEDS: MAG HYDROX/AL HYDROX/SIMETH 30 ML UNIT-DOSE CUP PO PRN (21:39)
[2018-04-12] MEDS: MELATONIN 5 MG TABLETS PO PRN (21:40)
[2018-04-13] MEDS: LACTULOSE 20 GM/30 ML UDC (FOR ORAL USE ONLY) PO SCH (06:53)
[2018-04-13] MEDS: NICOTINE POLACRILEX 4 MG GUM BUC PRN ×2 (06:55→10:28)
[2018-04-13] MEDS: PRENATAL VITAMINS W/ FOLIC ACID TABLET (FP) PO SCH (10:27)
[2018-04-13] MEDS: NICOTINE 21 MG/24 HOURS TOPICAL PATCH TD SCH (10:27)
--- NOTE | 2018-04-13 12:15 | HP ---
Psychiatrist Admission - Data Date of interview: 04/13/18 Identifying data: This is the first admission 5N inpatient rehabilitation admission for this 52 year old AA male who is father of one, domiciled , unemployed and supported on SSD benefits. Medical History: History of cerebro-vascular accident (CVA + left sided weakness ) in 2014. Smokes cigaretets 30 a day. Psychiatric History: Patient reports was diagnosed with Schizoaffective Disorder reports history of three psychiatric hospitalizations at [facility].Diagnosed with Schizoaffective Disorder. Currently on haldol 5 mg po bid and depakote 1000 mg po bid, medications were put on hold due to elevated Ammonia level. Patient gets his psychiatric follow up at the [facility]. Physical/Sexual Abuse/Trauma History: Denies Vital Signs: Vital Signs - 24 hr 04/12/18 04/13/18 04/13/18 13:05 00:30 03:30 Temperature 98.7 F Pulse Rate 122 H Respiratory 18 18 18 Rate Blood Pressure 103/83 04/13/18 06:44 Temperature 97.9 F Pulse Rate 76 Respiratory 18 Rate Blood Pressure 112/68 Allergies/Adverse Reactions: Allergies Allergy/AdvReac Type Severity Reaction Status Date / Time No Known Allergies Allergy Verified 04/12/18 15:35 Date of last physical exam: 04/06/18 Concur with the findings of this exam: Yes - Substance Abuse/Tx History Hx Alcohol Use: Yes (2-6 pks beer/2 pint of cognac) Hx Substance Use: Yes Substance Use Type: Cocaine ($400 3-6 times a week) Hx Substance Use Treatment: Yes Mental Status Exam - Mental Status Exam Alert and Oriented to: Time, Place, Person Cognitive Function: Grossly Intact Patient Appearance: Well Groomed Mood: Sad Affect: Appropriate, Mood Congruent Patient Behavior: Appropriate, Cooperative Speech Pattern: Clear Voice Loudness: Normal Thought Process: Goal Oriented Thought Disorder: Not Present Hallucinations: Denies Suicidal Ideation: Denies Homicidal Ideation: Denies Insight/Judgement: Fair Sleep: Fair Appetite: Fair Muscle strength/Tone: Normal Gait/Station: Normal Psychiatric Findings - Problem List ([place] 1, 2,3) (1) Alcohol dependence Current Visit: Yes Status: Acute (2) Cocaine dependence Current Visit: Yes Status: Chronic (3) Schizoaffective disorder Current Visit: Yes Status: Chronic Qualifiers: Schizoaffective disorder type: unspecified Qualified Code(s): F25.9 - Schizoaffective disorder, unspecified Comment: As per self-report.On medications. - Initial Treatment Plan Initial Treatment Plan: haldol 5 mg po prn, will start depakote 250 mg po bid, will adjust medications when ammonia level decrease.
[2018-04-13] MEDS: MAG HYDROX/AL HYDROX/SIMETH 30 ML UNIT-DOSE CUP PO PRN (15:41)
[2018-04-13] MEDS: THIAMINE HCL 100 MG TABLET (FP) PO SCH (21:44)
[2018-04-13] MEDS: DIVALPROEX SODIUM 250 MG TABLET E.C. PO SCH (21:44)
[2018-04-14] MEDS: PRENATAL VITAMINS W/ FOLIC ACID TABLET (FP) PO SCH (09:58)
[2018-04-14] MEDS: DIVALPROEX SODIUM 250 MG TABLET E.C. PO SCH ×2 (09:58→21:26)
[2018-04-14] MEDS: MAG HYDROX/AL HYDROX/SIMETH 30 ML UNIT-DOSE CUP PO PRN ×2 (10:01→21:28)
[2018-04-14 10:02] LABS: BASO % 0.2 % (0-2.0); EOS % 1.5 % (0-4.5); HEMATOCRIT 45.6 % (35.4-49); LYMPH % 39.6 % (8-40); MCH 28.6 pg (25.7-33.7); MCHC 32.9 g/dl (32.0-35.9); MEAN CELL VOLUME 87.1 fl (80-96); MEAN PLT VOLUME 8.3 fl (7.5-11.1); MONO % 7.7 % (3.8-10.2); PLATELET COUNT 311 K/MM3 (134-434); RBC 5.24 M/mm3 (4.00-5.60); RDW 14.6 % (11.9-15.9); WHITE BLOOD COUNT 12.5 K/mm3 (4.0-10.0)
[2018-04-14] MEDS: NICOTINE 21 MG/24 HOURS TOPICAL PATCH TD SCH (10:02)
[2018-04-14] MEDS: THIAMINE HCL 100 MG TABLET (FP) PO SCH (21:26)
[2018-04-15] MEDS: NICOTINE 21 MG/24 HOURS TOPICAL PATCH TD SCH (10:23)
[2018-04-15] MEDS: PRENATAL VITAMINS W/ FOLIC ACID TABLET (FP) PO SCH (10:23)
[2018-04-15] MEDS: DIVALPROEX SODIUM 250 MG TABLET E.C. PO SCH ×2 (10:23→21:01)
--- NOTE | 2018-04-15 17:55 | PN ---
[facility] Progress Note Note: Vital Signs Temperature 98.0 F 04/15/18 07:23 Pulse Rate 73 04/15/18 07:23 Respiratory Rate 18 04/15/18 07:23 Blood Pressure 102/70 04/15/18 07:23 O2 Sat by Pulse Oximetry (%) Laboratory Last Values WBC 12.5 K/mm3 (4.0-10.0) H 04/14/18 07:30 RBC 5.24 M/mm3 (4.00-5.60) 04/14/18 07:30 Hgb 15.0 GM/dL (11.7-16.9) 04/14/18 07:30 Hct 45.6 % (35.4-49) 04/14/18 07:30 MCV 87.1 fl (80-96) 04/14/18 07:30 MCH 28.6 pg (25.7-33.7) 04/14/18 07:30 MCHC 32.9 g/dl (32.0-35.9) 04/14/18 07:30 RDW 14.6 % (11.9-15.9) 04/14/18 07:30 Plt Count 311 K/MM3 (134-434) 04/14/18 07:30 MPV 8.3 fl (7.5-11.1) 04/14/18 07:30 Neutrophils % 51.0 % (42.8-82.8) 04/14/18 07:30 Lymphocytes % 39.6 % (8-40) 04/14/18 07:30 Monocytes % 7.7 % (3.8-10.2) 04/14/18 07:30 Eosinophils % 1.5 % (0-4.5) 04/14/18 07:30 Basophils % 0.2 % (0-2.0) 04/14/18 07:30 Nucleated RBC % 0 % (0-0) 04/14/18 07:30 Sodium 142 mmol/L (136-145) 04/07/18 07:50 Potassium 4.6 mmol/L (3.5-5.1) 04/07/18 07:50 Chloride 105 mmol/L (98-107) 04/07/18 07:50 Carbon Dioxide 29 mmol/L (21-32) 04/07/18 07:50 Anion Gap 8 (8-16) 04/07/18 07:50 BUN 8 mg/dL (7-18) 04/07/18 07:50 Creatinine 1.2 mg/dL (0.7-1.3) 04/07/18 07:50 Creat Clearance w eGFR > 60 (>60) 04/07/18 07:50 Random Glucose 88 mg/dL (74-106) 04/07/18 07:50 Calcium 8.7 mg/dL (8.5-10.1) 04/07/18 07:50 Total Bilirubin 0.6 mg/dL (0.2-1.0) 04/07/18 07:50 AST 15 U/L (15-37) 04/07/18 07:50 ALT 25 U/L (12-78) 04/07/18 07:50 Alkaline Phosphatase 114 U/L (45-117) 04/07/18 07:50 Ammonia 63.42 umol/L (11-32) H 04/14/18 07:30 Total Protein 7.8 g/dl (6.4-8.2) 04/07/18 07:50 Albumin 3.7 g/dl (3.4-5.0) 04/07/18 07:50 Urine Color Yellow 04/06/18 22:30 Urine Appearance Clear 04/06/18 22:30 Urine pH 6.0 (5.0-8.0) 04/06/18 22:30 Ur Specific [place] 1.018 (1.001-1.035) 04/06/18 22:30 Urine Protein Negative (NEGATIVE) 04/06/18 22:30 Urine Glucose (UA) Negative (NEGATIVE) 04/06/18 22:30 Urine Ketones Trace (NEGATIVE) H 04/06/18 22:30 Urine Blood 2+ (NEGATIVE) H 04/06/18 22:30 Urine Nitrite Negative (NEGATIVE) 04/06/18 22:30 Urine Bilirubin Negative (<2.0 mg/dL) 04/06/18 22:30 Urine Urobilinogen Negative mg/dL (0.2-1.0) 04/06/18 22:30 Ur Leukocyte Esterase Negative (NEGATIVE) 04/06/18 22:30 Urine WBC (Auto) <1 /hpf (3-5) 04/06/18 22:30 Urine RBC (Auto) 9 /hpf (0-3) 04/06/18 22:30 Ur Epithelial Cells Rare /HPF (FEW) 04/06/18 22:30 Urine Mucus Rare 04/06/18 22:30 Valproic Acid 35.379 ug/ml (50-100) L 04/08/18 08:20 RPR Titer Nonreactive (NONREACTIVE) 04/07/18 07:50 Patient with asymptomatic elevated Ammonia levels. start lactulose 20ml tid repeat ammonia levels in AMA increase fluids continue to monitor
[2018-04-15] MEDS: MAG HYDROX/AL HYDROX/SIMETH 30 ML UNIT-DOSE CUP PO PRN (21:00)
[2018-04-15] MEDS: LACTULOSE 20 GM/30 ML UDC (FOR ORAL USE ONLY) PO PRN (21:01)
[2018-04-15] MEDS: THIAMINE HCL 100 MG TABLET (FP) PO SCH (21:01)
[2018-04-16] MEDS: LACTULOSE 20 GM/30 ML UDC (FOR ORAL USE ONLY) PO PRN (10:10)
[2018-04-16] MEDS: NICOTINE 21 MG/24 HOURS TOPICAL PATCH TD SCH (10:10)
[2018-04-16] MEDS: PRENATAL VITAMINS W/ FOLIC ACID TABLET (FP) PO SCH (10:10)
[2018-04-16] MEDS: DIVALPROEX SODIUM 250 MG TABLET E.C. PO SCH ×2 (10:10→21:34)
[2018-04-16] MEDS: MAG HYDROX/AL HYDROX/SIMETH 30 ML UNIT-DOSE CUP PO PRN (20:08)
[2018-04-16] MEDS: LACTULOSE 20 GM/30 ML UDC (FOR ORAL USE ONLY) PO SCH (21:34)
[2018-04-16] MEDS: THIAMINE HCL 100 MG TABLET (FP) PO SCH (21:34)
[2018-04-17] MEDS: IBUPROFEN 400 MG TABLET (FP) PO PRN (00:42)
[2018-04-17] MEDS: MAG HYDROX/AL HYDROX/SIMETH 30 ML UNIT-DOSE CUP PO PRN ×2 (02:11→21:45)
[2018-04-17] MEDS: LACTULOSE 20 GM/30 ML UDC (FOR ORAL USE ONLY) PO SCH ×4 (07:07→21:42)
[2018-04-17] MEDS: PRENATAL VITAMINS W/ FOLIC ACID TABLET (FP) PO SCH (10:18)
[2018-04-17] MEDS: DIVALPROEX SODIUM 250 MG TABLET E.C. PO SCH ×2 (10:18→21:42)
[2018-04-17] MEDS: NICOTINE 21 MG/24 HOURS TOPICAL PATCH TD SCH (10:18)
[2018-04-17] MEDS: NICOTINE POLACRILEX 4 MG GUM BUC PRN (14:05)
--- NOTE | 2018-04-17 16:16 | PN ---
[facility] Progress Note Note: ammonia level is 92.9 to give lactulose to 20 grams po qid,repeat ammonia level on tue04/19/18
[2018-04-17] MEDS: THIAMINE HCL 100 MG TABLET (FP) PO SCH (21:42)
[2018-04-17] MEDS: MELATONIN 5 MG TABLETS PO PRN (21:43)
[2018-04-18] MEDS: NICOTINE 21 MG/24 HOURS TOPICAL PATCH TD SCH (10:48)
[2018-04-18] MEDS: DIVALPROEX SODIUM 250 MG TABLET E.C. PO SCH ×2 (10:48→21:02)
[2018-04-18] MEDS: PRENATAL VITAMINS W/ FOLIC ACID TABLET (FP) PO SCH (10:48)
[2018-04-18] MEDS: LACTULOSE 20 GM/30 ML UDC (FOR ORAL USE ONLY) PO SCH ×5 (10:48→22:15)
[2018-04-18] MEDS: THIAMINE HCL 100 MG TABLET (FP) PO SCH (21:02)
[2018-04-18] MEDS: MAG HYDROX/AL HYDROX/SIMETH 30 ML UNIT-DOSE CUP PO PRN (21:03)
[2018-04-19] MEDS: LACTULOSE 20 GM/30 ML UDC (FOR ORAL USE ONLY) PO SCH ×4 (10:42→21:28)
[2018-04-19] MEDS: PRENATAL VITAMINS W/ FOLIC ACID TABLET (FP) PO SCH (10:43)
[2018-04-19] MEDS: NICOTINE 21 MG/24 HOURS TOPICAL PATCH TD SCH (10:43)
[2018-04-19] MEDS: DIVALPROEX SODIUM 250 MG TABLET E.C. PO SCH ×2 (10:43→21:28)
[2018-04-19] MEDS: THIAMINE HCL 100 MG TABLET (FP) PO SCH (21:28)
[2018-04-20] MEDS: DIVALPROEX SODIUM 250 MG TABLET E.C. PO SCH ×2 (10:18→21:46)
[2018-04-20] MEDS: PRENATAL VITAMINS W/ FOLIC ACID TABLET (FP) PO SCH (10:18)
[2018-04-20] MEDS: NICOTINE 21 MG/24 HOURS TOPICAL PATCH TD SCH (10:18)
[2018-04-20] MEDS: LACTULOSE 20 GM/30 ML UDC (FOR ORAL USE ONLY) PO SCH ×4 (10:18→21:46)
[2018-04-20] MEDS: THIAMINE HCL 100 MG TABLET (FP) PO SCH (21:46)
[2018-04-21] MEDS: DIVALPROEX SODIUM 250 MG TABLET E.C. PO SCH ×2 (10:26→21:31)
[2018-04-21] MEDS: PRENATAL VITAMINS W/ FOLIC ACID TABLET (FP) PO SCH (10:26)
[2018-04-21] MEDS: LACTULOSE 20 GM/30 ML UDC (FOR ORAL USE ONLY) PO SCH ×4 (10:26→21:31)
[2018-04-21] MEDS: NICOTINE 21 MG/24 HOURS TOPICAL PATCH TD SCH (10:27)
[2018-04-21] MEDS: THIAMINE HCL 100 MG TABLET (FP) PO SCH (21:31)
[2018-04-22] MEDS: PRENATAL VITAMINS W/ FOLIC ACID TABLET (FP) PO SCH (10:39)
[2018-04-22] MEDS: DIVALPROEX SODIUM 250 MG TABLET E.C. PO SCH ×2 (10:39→21:31)
[2018-04-22] MEDS: LACTULOSE 20 GM/30 ML UDC (FOR ORAL USE ONLY) PO SCH ×4 (10:39→21:31)
[2018-04-22] MEDS: NICOTINE 21 MG/24 HOURS TOPICAL PATCH TD SCH (10:40)
[2018-04-22] MEDS: THIAMINE HCL 100 MG TABLET (FP) PO SCH (21:31)
[2018-04-23] MEDS: LACTULOSE 20 GM/30 ML UDC (FOR ORAL USE ONLY) PO SCH ×4 (10:23→21:31)
[2018-04-23] MEDS: PRENATAL VITAMINS W/ FOLIC ACID TABLET (FP) PO SCH (10:24)
[2018-04-23] MEDS: NICOTINE 21 MG/24 HOURS TOPICAL PATCH TD SCH (10:24)
[2018-04-23] MEDS: DIVALPROEX SODIUM 250 MG TABLET E.C. PO SCH ×2 (10:24→21:31)
[2018-04-23] MEDS: THIAMINE HCL 100 MG TABLET (FP) PO SCH (21:31)
[2018-04-24] MEDS: LACTULOSE 20 GM/30 ML UDC (FOR ORAL USE ONLY) PO SCH ×4 (10:31→21:51)
[2018-04-24] MEDS: DIVALPROEX SODIUM 250 MG TABLET E.C. PO SCH ×2 (10:31→21:51)
[2018-04-24] MEDS: NICOTINE 21 MG/24 HOURS TOPICAL PATCH TD SCH (10:31)
[2018-04-24] MEDS: PRENATAL VITAMINS W/ FOLIC ACID TABLET (FP) PO SCH (10:31)
[2018-04-24] MEDS: THIAMINE HCL 100 MG TABLET (FP) PO SCH (21:51)
[2018-04-25] MEDS: MELATONIN 5 MG TABLETS PO PRN ×2 (01:28→21:32)
[2018-04-25] MEDS: PRENATAL VITAMINS W/ FOLIC ACID TABLET (FP) PO SCH (10:27)
[2018-04-25] MEDS: NICOTINE 21 MG/24 HOURS TOPICAL PATCH TD SCH (10:27)
[2018-04-25] MEDS: LACTULOSE 20 GM/30 ML UDC (FOR ORAL USE ONLY) PO SCH ×4 (10:27→21:31)
[2018-04-25] MEDS: DIVALPROEX SODIUM 250 MG TABLET E.C. PO SCH ×2 (10:27→21:31)
[2018-04-25] MEDS: THIAMINE HCL 100 MG TABLET (FP) PO SCH (21:31)
[2018-04-26 06:45] VITALS: BP 112/66; PULSE 62; TEMP 97.8
[2018-04-26] MEDS: DIVALPROEX SODIUM 250 MG TABLET E.C. PO SCH (10:36)
[2018-04-26] MEDS: PRENATAL VITAMINS W/ FOLIC ACID TABLET (FP) PO SCH (10:36)
[2018-04-26] MEDS: LACTULOSE 20 GM/30 ML UDC (FOR ORAL USE ONLY) PO SCH (10:36)
[2018-04-26] MEDS: NICOTINE 21 MG/24 HOURS TOPICAL PATCH TD SCH (10:37)
--- NOTE | 2018-04-26 11:37 | PN ---
Psychiatric Progress Note Vital Signs: Vital Signs Period Temp Pulse Resp BP Sys/North Pulse Ox Last 24 Hr 97.8 F 62 18-20 112/66 Date of Session: 04/26/18 Chief Complaint:: "Discharge" HPI: Patient was admitted to for alcohol and cocaine dependence. ROS: History of cerebro-vascular accident (CVA + left sided weakness) in 2014 Current Medications: Active Medications Generic Name Dose Route Start Last Admin Trade Name Freq PRN Reason Stop Dose Admin Al Hydroxide/Mg Hydroxide 30 ml 04/06/18 18:52 04/18/18 21:03 Mylanta Oral Suspension - PO 30 ml Q6H PRN Administration DYSPEPSIA Benztropine Mesylate 0.5 mg 04/12/18 14:57 Cogentin - PO BID PRN AGITATION Divalproex Sodium 250 mg 04/13/18 22:00 04/26/18 10:36 Depakote - PO 250 mg BID EMMA Administration Eucalyptus/Menthol/Phenol/Sorbitol 1 each 04/06/18 18:52 Cepastat Lozenge - MM Q4H PRN SORE THROAT Guaifenesin 10 ml 04/06/18 18:52 Robitussin Dm - PO Q6H PRN COUGH Haloperidol 5 mg 04/12/18 14:55 Haldol - PO BID PRN AGITATION Hydroxyzine Pamoate 50 mg 04/06/18 18:52 Vistaril - PO Q4H PRN AGITATION Ibuprofen 400 mg 04/06/18 18:52 04/17/18 00:42 Motrin - PO 400 mg Q6H PRN Administration PAIN LEVEL 4-6 Lactulose 20 gm 04/17/18 18:00 04/26/18 10:36 Cephulac (Oral Use) PO 20 gm QID EMMA Administration Loperamide HCl 4 mg 04/06/18 18:52 Imodium - PO Q6H PRN DIARRHEA Magnesium Citrate 300 ml 04/06/18 18:52 Citroma - PO Q48H PRN CONSTIPATION Magnesium Hydroxide 30 ml 04/06/18 18:52 Milk Of Magnesia - PO DAILY PRN CONSTIPATION Melatonin 5 mg 04/06/18 22:00 04/25/18 21:32 Melatonin PO 5 mg HS PRN Administration INSOMNIA Nicotine 21 mg 04/07/18 10:00 04/26/18 10:37 Nicoderm Patch - TD Not Given DAILY EMMA Nicotine Polacrilex 4 mg 04/06/18 18:52 04/17/18 14:05 Nicorette Gum - BUC 4 mg Q2H PRN Administration NICOTINE REPLACEMENT RX Multivit/Folic Acid/Iron 1 tab 04/07/18 10:00 04/26/18 10:36 Vitamins (Sjr) - PO 1 tab DAILY EMMA Administration Pseudoephedrine/Triprolidine 1 combo 04/06/18 18:52 Actifed - PO TID PRN NASAL CONGESTION Thiamine HCl 100 mg 04/06/18 22:00 04/25/18 21:31 Vitamin B1 - PO 100 mg HS EMMA Administration Medication(s) Change(s): No. Current Side Effect: No Lab tests ordered: No Lab tests reviewed: Yes Provider note:: Patient able to complete the 5 rehabilitation program on . Pt. has met his treatment goals and will continue to address his issues at [facility]. Patient is able to identify behaviors which contribute to relapse and has developed skills he can utilize to maintain recovery. Patient states he will see his psychiatrist this week and is only requesting a prescription for seven days. An electronic prescription for seven days of haldol 5mg BID + cogentin 0.5mg + Depakote 250mg BID will be electronically sent to [facility] at [address] [place] [address]. Pt. is stable for discharge. Total face to face time:: 35 Mental Status Exam - Mental Status Exam Alert and Oriented to: Time, Place, Person Cognitive Function: Good Patient Appearance: Well Groomed Mood: Hopeful, Euthymic Affect: Mood Congruent Patient Behavior: Appropriate Speech Pattern: Appropriate Voice Loudness: Mildly Soft/Quiet Thought Process: Intact, Goal Oriented Thought Disorder: Not Present Hallucinations: Denies Suicidal Ideation: Denies Homicidal Ideation: Denies Insight/Judgement: Good Sleep: Well Appetite: Good Muscle strength/Tone: Normal Gait/Station: Normal Psychiatric Treatment Plan - Problem List (1) Alcohol dependence Current Visit: Yes (2) Cocaine dependence Current Visit: Yes Comment: . (3) Schizoaffective disorder Current Visit: Yes Qualifiers: Schizoaffective disorder type: unspecified Qualified Code(s): F25.9 - Schizoaffective disorder, unspecified Comment: .As per self-report.On medications.
== END 2018-04-26 12:15 | disposition home or self-care (01) | DRG 895 ==
LOC: YASAS 13:11 → Y3N 17:33 → Y5N 04-12 12:46
PROVIDERS: ADMIT Internal Medicine; ATTEND Psychiatry & Neurology Psychiatry
PROC: HZ2ZZZZ Detoxification Services for Substance Abuse Treatment (ICD-10-PCS; principal; 2018-04-07)
PROC: HZ42ZZZ Group Counseling for Substance Abuse Treatment, Cognitive-Behavioral (ICD-10-PCS; 2018-04-12)
DX: F10.230 Alcohol dependence with withdrawal, uncomplicated (principal); I69.354 Hemiplegia and hemiparesis following cerebral infarction affecting left non-dominant side; E72.20 Disorder of urea cycle metabolism, unspecified; F19.24 Other psychoactive substance dependence with psychoactive substance-induced mood disorder; F25.9 Schizoaffective disorder, unspecified; D72.829 Elevated white blood cell count, unspecified; R82.90 Unspecified abnormal findings in urine; R76.11 Nonspecific reaction to tuberculin skin test without active tuberculosis; E66.9 Obesity, unspecified; Z68.37 Body mass index [BMI] 37.0-37.9, adult; S09.90XA Unspecified injury of head, initial encounter; W18.39XA Other fall on same level, initial encounter; Y93.01 Activity, walking, marching and hiking; Y92.230 Patient room in hospital as the place of occurrence of the external cause
CPT/HCPCS: 36415; 70450-TC; 71045-TC-FY; 80053; 80164; 81003; 81015; 82140; 85025; 85027; 86593; 93005; 93010; 99281-25

== ENCOUNTER 2018-04-10 04:20 | Emergency (ER) | payer OTHER ==
--- NOTE | 2018-04-10 04:35 | PDOC ---
*Physical Exam - Vital Signs Last Vital Signs Temp Pulse Resp BP Pulse Ox 98 F 75 18 124/88 100 04/10/18 04:29 04/10/18 04:29 04/10/18 04:29 04/10/18 04:29 04/10/18 04:29 Medical Decision Making - Medical Decision Making 04/10/18 04:35 Pt seen by the Advanced Practice Provider under my direct supervision Ancillary studies reviewed I agree with plan as outlined by the Advanced Practice Provider BRYON Rayo *DC/Admit/Observation/Transfer Diagnosis at time of Disposition: Closed head injury - Discharge Dispostion Disposition: HOME Condition at time of disposition: Stable - Referrals Referrals: Armand Malagon MD [Primary Care Provider] - - Patient Instructions Printed Discharge Instructions: DI for Closed Head Injury - Post Discharge Activity
[2018-04-10 04:43] VITALS: BP 124/88; PULSE 75; TEMP 98; BMI 37.3
--- NOTE | 2018-04-10 04:53 | PDOC ---
History of Present Illness - General Chief Complaint: Injury Stated Complaint: FALL History Source: Patient, EMS Exam Limitations: No Limitations - History of Present Illness Initial Comments: 04/10/18 04:41 Patient is a 52-year-old male with history of polysubstance abuse. CVA with left -sided weakness, bipolar disorder sent from [facility] for evaluation of head injury. Patient states that he was in bed sleeping and he fell out of bed hitting his left parietal area on the floor from about 3 feet high. No loss of consciousness, no nausea, vomiting. Patient is not on anticoagulants. PMD: None PMHX: As above PSOCHX: (+) etoh, (+) cig, (+) drugs, currently in rehab ALL: NKDA GENERAL/CONSTITUTIONAL: [No fever or chills. No weakness. No weight change.] HEAD, EYES, EARS, NOSE AND THROAT: [No change in vision. No ear pain or discharge. No sore throat.] CARDIOVASCULAR: [No chest pain or shortness of breath.] RESPIRATORY: [No cough, wheezing, or hemoptysis.] GASTROINTESTINAL: [No nausea, vomiting, diarrhea or constipation. No rectal bleeding.] GENITOURINARY: [No dysuria, frequency, or change in urination.] MUSCULOSKELETAL: [No joint or muscle swelling or pain. No neck or back pain.] SKIN AND BREASTS: [No rash or easy bruising.] NEUROLOGIC: [No headache, vertigo, loss of consciousness, or loss of sensation.] PSYCHIATRIC: (+) depression/anxiety. ENDOCRINE: [No increased thirst. No abnormal weight change.] HEMATOLOGIC/LYMPHATIC: [No anemia, easy bleeding, or history of blood clots.] ALLERGIC/IMMUNOLOGIC: [No hives or skin allergy. No latex allergy.] GENERAL: [The patient is awake, alert, and fully oriented, in no acute distress. ] HEAD: [Normal with no signs of trauma.] EYES: [Pupils equal, round and reactive to light, extraocular movements intact, sclera anicteric, conjunctiva clear.] ENT: [Ears normal, nares patent, oropharynx clear without exudates. Moist mucous membranes.] NECK: [Normal range of motion, supple without lymphadenopathy, JVD, or masses.] LUNGS: [Breath sounds equal, clear to auscultation bilaterally. No wheezes, and no crackles.] HEART: [Regular rate and rhythm, normal S1 and S2 without murmur, rub.] ABDOMEN: [Soft, nontender, normoactive bowel sounds. No guarding, no rebound. No masses.] EXTREMITIES: [Normal range of motion, no edema. No clubbing or cyanosis. No cords, erythema, or tenderness.] NEUROLOGICAL: [Cranial nerves II through XII grossly intact. Normal speech, normal gait.] PSYCH: [Normal mood, normal affect.] SKIN: [Warm, Dry, normal turgor, no rashes or lesions noted.] Past History - Past Medical History Allergies/Adverse Reactions: Allergies Allergy/AdvReac Type Severity Reaction Status Date / Time No Known Allergies Allergy Verified 04/10/18 04:29 Home Medications: Ambulatory Orders Divalproex Sodium [Depakote ER] 1,000 mg PO AM 04/06/18 Divalproex Sodium [Depakote ER] 1,000 mg PO HS 04/06/18 Donepezil HCl 10 mg PO DAILY 04/06/18 Haloperidol [Haldol -] 5 mg PO AM 04/06/18 Haloperidol [Haldol -] 5 mg PO HS 04/06/18 Anemia: No Asthma: No Cancer: No Cardiac Disorders: No CVA: No COPD: No CHF: No Diabetes: No GI Disorders: No Disorders: No HTN: No Hypercholesterolemia: No Kidney Stones: No Liver Disease: No Psychiatric Problems: Yes Seizures: No Thyroid Disease: No - Surgical History Abdominal Surgery: No Appendectomy: No Cardiac Surgery: No Cholecystectomy: No Lung Surgery: No Neurologic Surgery: No Orthopedic Surgery: No - Reproductive History Testicular Surgery: No - Suicide/Smoking/Psychosocial Hx Smoking History: Current every day smoker Have you smoked in the past 12 months: Yes Number of Cigarettes Smoked Daily: 30 Information on smoking cessation initiated: No 'Breaking Loose' booklet given: 04/06/18 Hx Alcohol Use: Yes Drug/Substance Use Hx: Yes Substance Use Type: Alcohol, Cocaine Hx Substance Use Treatment: Yes (last detox 20yrs ago at [place], [place]) Trauma Specific PMHX - Complaint Specific PMHX Arthritis: No *Physical Exam - Vital Signs Last Vital Signs Temp Pulse Resp BP Pulse Ox 98 F 75 18 124/88 100 04/10/18 04:29 04/10/18 04:29 04/10/18 04:29 04/10/18 04:29 04/10/18 04:29 ED Treatment Course - RADIOLOGY Radiology Studies Ordered: Category Date Time Status HEAD CT WITHOUT CONTRAST [CT] Stat CT Scan 04/10/18 04:28 Ordered Medical Decision Making - Medical Decision Making 04/10/18 04:41 Patient is a 52-year-old male with history of polysubstance abuse. CVA with left -sided weakness, bipolar disorder sent from [facility] for evaluation of head injury. CT head Patient will be discharged and then CT scan. Negative 05 CT head Patient Full Name: MARCUS URIOSTEGUI Patient Accession No: [id number] Patient : [id number] Reason for Exam: fell out of bed 3 feet high Referring Physician: CRISTOBAL SCOTT Patient Name: GILA VELAZQUEZ THIS IS A PRELIMINARY REPORT FROM IMAGING AUTHORIZER DATE OF SERVICE: 2018-04-10 04:40:35 IMAGES: 157 EXAM: CT HEAD WITHOUT CONTRAST No acute brain parenchymal abnormality. No hemorrhage, mass or acute territorial infarct. Chronic lacunar infarcts and chronic small vessel ischemic changes. No skull fracture. Clear visualized paranasal sinuses. Visualized mastoid air cells clear. THIS DOCUMENT HAS BEEN ELECTRONICALLY SIGNED Charity Amato M.D. 04/10/2018 05:21 EST E[place]. Please call [facility] [phone]) with questions. INTERPRETING RADIOLOGIST: Charity Amato MD Electronically Signed: April 10, 2018 05:22AM EDT I discussed the physical exam findings, ancillary test results and final diagnoses with the patient. I answered all of the patient's questions. The patient was satisfied with the care received and felt comfortable with the discharge plan and treatment plan. The Patient agrees to follow up with the primary care physician within 24-72 hours. *DC/Admit/Observation/Transfer Diagnosis at time of Disposition: Closed head injury Qualifiers: Encounter type: initial encounter Qualified Code(s): S09.90XA - Unspecified injury of head, initial encounter - Discharge Dispostion Disposition: HOME Condition at time of disposition: Stable - Referrals Referrals: Armand Malagon MD [Primary Care Provider] - - Patient Instructions Printed Discharge Instructions: DI for Closed Head Injury - Post Discharge Activity
== END 2018-04-10 06:13 | disposition home or self-care (01) ==
LOC: JER 04:20
DX: S09.8XXA Other specified injuries of head, initial encounter (principal); W06.XXXA Fall from bed, initial encounter; Y93.84 Activity, sleeping; Y92.230 Patient room in hospital as the place of occurrence of the external cause; Y99.8 Other external cause status; F10.10 Alcohol abuse, uncomplicated; F14.10 Cocaine abuse, uncomplicated; F17.210 Nicotine dependence, cigarettes, uncomplicated; F31.9 Bipolar disorder, unspecified; F41.9 Anxiety disorder, unspecified; I69.854 Hemiplegia and hemiparesis following other cerebrovascular disease affecting left non-dominant side
CPT/HCPCS: 70450-TC; 99281-25